=== PATIENT | male | born 1955 | race Caucasian/White ===

== ENCOUNTER 2024-10-23 07:59 | Inpatient (IN) ==
--- NOTE | 2024-10-03 09:18 | PAT Medication Instructions ---
Medication Instructions Date of Service October 03, 2024 Home Medications aspirin 81 mg capsule 81 mg PO QAM atorvastatin 80 mg tablet 80 mg PO HS carvedilol 3.125 mg tablet 3.125 mg PO BID celecoxib 100 mg capsule (Celebrex) 100 mg PO HS multivitamin 1 tab PO QAM omeprazole 20 mg capsule,delayed release 20 mg PO QAM tamsulosin 0.4 mg capsule 0.4 mg PO HS valacyclovir 500 mg tablet (Valtrex) 500 mg PO QAM diclofenac epolamine 1.3 % transdermal 24 hour patch 1 patch transdermal DAILY fluticasone propionate 50 mcg/actuation nasal spray,suspension 1 spray intranasal HS ASK your surgeon for instructions celecoxib 100 mg capsule (Celebrex) 100 mg PO HS ASK your prescriber and surgeon aspirin 81 mg capsule 81 mg PO QAM diclofenac epolamine 1.3 % transdermal 24 hour patch 1 patch transdermal DAILY DO NOT take the morning of surgery multivitamin 1 tab PO QAM Take morning of surgery With a small sip of water, OTHERWISE NOTHING TO EAT OR DRINK AFTER MIDNIGHT: carvedilol 3.125 mg tablet 3.125 mg PO BID omeprazole 20 mg capsule,delayed release 20 mg PO QAM valacyclovir 500 mg tablet (Valtrex) 500 mg PO QAM Take evening before surgery atorvastatin 80 mg tablet 80 mg PO HS carvedilol 3.125 mg tablet 3.125 mg PO BID tamsulosin 0.4 mg capsule 0.4 mg PO HS fluticasone propionate 50 mcg/actuation nasal spray,suspension 1 spray intranasal HS Other Notes If you have any questions please call us at [phone] or [phone] or [phone] or [phone]
--- NOTE | 2024-10-08 11:25 | Anesthesiology Consultation ---
Date of Service October 08, 2024 Assessment & Plan (1) Encounter for pre-operative examination: - Infectious disease screening: Per assessment on 10/08/24- No known recent infectious disease contacts or current infectious disease symptoms. - Cardiology visit (07/26/24): "He is scheduled to see orthopedic surgery for his severe back pain.. No symptoms of angina or heart failure.. Continue aggressive risk factor modification.. Hypertension.. Well-controlled on carvedilol which has been well-tolerated we will continue the same.. We will update echocardiogram for mitral regurgitant murmur and compare to 2022 [Echo updated 08/07/24].." - [facility] note (10/04/24): "Low risk" - Possible difficult intubation: Significantly decreased cervical extension - Patient acceptable risk for surgery pending surgeon-ordered PCP preop evaluation ([facility], appt 10/12). Chart Review Chart Review: Patient seen in Pre Admission Testing Teaching & Discussion Pre-Anesthesia Teaching/Discussion Notes: Instructed NPO after midnight before surgery,except medications with 15 cc of water. Medication instructions provided according to the PAT guidelines. History Surgery Operation Date: 10/23/24 09:35 Proposed Procedures p L4-S1 Decompression and Fusion - Abel Hunt DO Height/Weight Height: 6 ft Weight: 83.2 kg Allergies Allergy/AdvReac Type Severity Reaction Status Date / Time No Known Allergies Allergy Verified 10/01/24 09:48 Medications Home Medications Medication Instructions Recorded Confirmed Last Taken aspirin 81 mg capsule 81 mg PO QAM 09/03/22 10/01/24 Unknown atorvastatin 80 mg tablet 80 mg PO HS 09/03/22 10/01/24 Unknown carvedilol 3.125 mg tablet 3.125 mg PO BID 09/03/22 10/01/24 09/28/22 08:00 celecoxib 100 mg capsule (Celebrex) 100 mg PO HS 09/03/22 10/01/24 Unknown multivitamin 1 tab PO QAM 09/03/22 10/01/24 Unknown omeprazole 20 mg capsule,delayed 20 mg PO QAM 09/03/22 10/01/24 09/09/22 07:30 release tamsulosin 0.4 mg capsule 0.4 mg PO HS 09/03/22 10/01/24 Unknown valacyclovir 500 mg tablet 500 mg PO QAM 09/03/22 10/01/24 Unknown (Valtrex) diclofenac epolamine 1.3 % 1 patch transdermal DAILY 10/01/24 10/01/24 Unknown transdermal 24 hour patch fluticasone propionate 50 1 spray intranasal HS 10/01/24 10/01/24 Unknown mcg/actuation nasal spray,suspension Past Medical History Medical History (Updated 10/08/24 @ 11:28 by Norma Toro) BPH (benign prostatic hyperplasia) CAD (coronary artery disease) 2017- stent x1 Follows with [facility] Chronic back pain Follows with [facility] Chronic neck pain Follows with [facility] Degenerative disc disease GERD (gastroesophageal reflux disease) History of COVID-2020- mild flu-like symptoms, resolved Hx of colonic polyps Hyperlipidemia Hypertension Per records, patient denies Myocardial Infarction 2017 Follows with [facility] Osteoarthritis Sleep apnea "Mild" Unable to use CPAP Spinal stenosis Past Family History Family History Other No family history of adverse response to anesthesia Past Surgical History Surgical History (Updated 10/08/24 @ 10:31 by Norma Toro) H/O wisdom tooth extraction History of cardiac cath 2017- stent x1 ([facility]/[place]) History of colonoscopy History of heart artery stent x1 stent in 2017 at [facility] in [place] History of left cataract extraction Hx of arthroscopy of shoulder Left w/RCR and biceps tendon repair Hx of esophagogastroduodenoscopy Hx of right cataract extraction S/P epidural steroid injection Social History Smoking Status: Former smoker tobacco type: cigarettes Do You Dip or Chew Tobacco: No (quit early 20's) Smoking End Date: 2016 Hx Alcohol Use: Yes Alcohol type: beer alcohol intake frequency: holidays/special occasions only Hx Substance Use: No substance use type: does not use Review of Systems Patient denies chest pain, shortness of breath, dyspnea on exertion, fever, chills, cough, wheezing, palpitations. Physical Exam Vital Signs BP 127/80 P 66 TEMP 98.3 SP02 95%RA RESP 16 Physical Significantly decreased cervical extension range of motion. Full TMJ range of motion. TMD 3 finger breaths Mallampati Score III Dentition: intact, + caps Lungs: clear throughout to auscultation Cardiac: regular rate and rhythm, no murmurs noted Spine: normal Carotid arteries: negative bruit Extremities: no LE edema Lab Results Anesthesia Preop Results Results Anesthesia Widget: WBC 6.59 K/ul (4.8-10.8) 10/08/24 Hgb 16.6 g/dl (14.0-18.0) 10/08/24 Hct 48.1 % (42.0-52.0) 10/08/24 Plt 376 K/uL (130-400) 10/08/24 Na 139 mmol/L (136-145) 10/08/24 K 4.3 mmol/L (3.5-5.1) 10/08/24 Cl 105 mmol/L (98-107) 10/08/24 CO2 29 mmol/L (21-32) 10/08/24 BUN 16 mg/dl (6-23) 10/08/24 Creat 0.65 mg/dl (0.6-1.4) 10/08/24 Glucose Level 92 mg/dl (70-99(Fasting)) 10/08/24 PT 11.1 Seconds (9.0-12.0) 10/08/24 PTT 30 Seconds (21-31) 10/08/24 INR 1.0 (0.9-1.1) 10/08/24 Urine Color Yellow 10/08/24 Urine Appearance Clear (Clear) 10/08/24 Urine pH 7.0 (4.5-7.5) 10/08/24 Urine Specific [place] 1.006 (1.000-1.030) 10/08/24 Urine Protein Negative (Negative) 10/08/24 Urine Glucose (UA) Negative (Negative) 10/08/24 Urine Ketones Negative (Negative) 10/08/24 Urine Blood Negative (Negative) 10/08/24 Urine Nitrite Negative (Negative) 10/08/24 Urine Bilirubin Negative (Negative) 10/08/24 Urine Urobilinogen Negative (Negative) 10/08/24 Urine Leukocyte Esterase Negative (Negative) 10/08/24 Blood Type O Positive 10/08/24 Antibody Screen NEGATIVE 10/08/24 Testing Electrocardiogram Date: 07/26/24 Normal sinus rhythm at 74 bpm. Septal infarct (cited on or before 07/28/2023). Echo performed 08/07/2024. Chest X-Ray Date: 10/08/24 FINDINGS: Heart size and pulmonary vasculature are normal. No consolidation or pleural effusion. IMPRESSION: No acute findings. Echocardiogram Date: 08/07/24 LVEF 50-55%. Wall motion: All segments contract normally. Trace to Mild MR. Stress Test Date: 10/21/21 Type: exercise Negative for ischemia by EKG criteria. 12.0 METS. 90% MPHR.
[~2024-10-23 07:59] MED LIST: DexMEDEtomidine HCL IV 100 MCG/ML VIAL IV ONE; LIDOCAINE 2% 2 ML VIAL/AMP(20MG/ML) INFIL ONE; PROPOFOL IV EMULSION 10 MG/ML 20 ML VIAL IV ONE; ROCURONIUM BROMIDE 10 MG/ML 5 ML VIAL IV ONE
[2024-10-23] MEDS: GABAPENTIN 300 MG CAP PO SCH (08:08)
[2024-10-23] MEDS: CeleBREX 200 MG CAP PO SCH (08:08)
[2024-10-23] MEDS: LR 60ML/HR IV SCH (08:32)
[2024-10-23] MEDS: LR 15ML/HR IV SCH (08:32)
[2024-10-23] MEDS ORDERED: MIDAZOLAM HCL 1 MG/ML 2ML VIAL ONE (08:48)
[2024-10-23] MEDS ORDERED: KETAMINE HCL 10MG/ML SYR ONE (08:49)
--- NOTE | 2024-10-23 09:18 | History & Physical Bridge Note ---
Date of Service October 23, 2024 History & Physical Bridge Note I have examined the patient, reviewed the History & Physical and in the interval since the performance of the History & Physical I have noted the following changes of clinical significance: no changes noted
[2024-10-23] MEDS ORDERED: ONDANSETRON INJ 2 MG/ML 2 ML VIAL IV PRN ×2 (09:19→16:17)
[2024-10-23] MEDS ORDERED: ATROPINE SULFATE 0.1 MG/ML 10ML SYR IV PRN (09:19)
--- NOTE | 2024-10-23 09:19 | History & Physical Report ---
Date of Service October 23, 2024 Assessment & Plan (1) Multilevel lumbosacral spondylosis with radiculopathy: Plan: Decompression and fusion L4-S1 History of Present Illness Chief Complaint: Back and leg pain Primary Care Provider: Mckinley Cordero MD This is a 69-year-old male who presents with chronic persistent back and leg pain after failed course of nonoperative care is here for surgical invention. Allergies Allergy/AdvReac Type Severity Reaction Status Date / Time No Known Allergies Allergy Verified 10/23/24 08:02 Home Medications Medication Instructions Recorded Confirmed Type aspirin 81 mg capsule 81 mg PO QAM 09/03/22 10/23/24 History atorvastatin 80 mg tablet 80 mg PO HS 09/03/22 10/23/24 History carvedilol 3.125 mg tablet 3.125 mg PO BID 09/03/22 10/23/24 History celecoxib 100 mg capsule (Celebrex) 100 mg PO HS 09/03/22 10/23/24 History multivitamin 1 tab PO QAM 09/03/22 10/23/24 History omeprazole 20 mg capsule,delayed 20 mg PO QAM 09/03/22 10/23/24 History release tamsulosin 0.4 mg capsule 0.4 mg PO HS 09/03/22 10/23/24 History valacyclovir 500 mg tablet 500 mg PO QAM 09/03/22 10/23/24 History (Valtrex) diclofenac epolamine 1.3 % 1 patch transdermal DAILY 10/01/24 10/23/24 History transdermal 24 hour patch fluticasone propionate 50 1 spray intranasal HS 10/01/24 10/23/24 History mcg/actuation nasal spray,suspension Past Med/Surg History Problem List (Updated 10/23/24 @ 09:19 by Abel Hunt DO) Multilevel lumbosacral spondylosis with radiculopathy Encounter for pre-operative examination Medical History (Updated 10/23/24 @ 09:19 by Abel Hunt DO) CAD (coronary artery disease) 2017- stent x1 Follows with [facility] Sleep apnea "Mild" Unable to use CPAP Hx of colonic polyps Spinal stenosis Chronic neck pain Follows with [facility] Degenerative disc disease Chronic back pain Follows with [facility] Osteoarthritis BPH (benign prostatic hyperplasia) GERD (gastroesophageal reflux disease) Myocardial Infarction 2017 Follows with [facility] Hypertension Per records, patient denies Hyperlipidemia History of COVID-19 2020- mild flu-like symptoms, resolved Surgical History Hx of arthroscopy of shoulder Left w/RCR and biceps tendon repair Hx of esophagogastroduodenoscopy H/O wisdom tooth extraction Hx of right cataract extraction History of left cataract extraction History of colonoscopy S/P epidural steroid injection History of heart artery stent x1 stent in 2017 at [facility] in [place] History of cardiac cath 2017- stent x1 ([facility]/[place]) Family History Other No family history of adverse response to anesthesia Social History Smoking Status: Former smoker Smoking End Date: 2016; Second Hand Exposure: No; Do You Dip or Chew Tobacco: No (quit early 20's); Tobacco Cessation Education Requested by Patient: No Hx Alcohol Use: Yes Alcohol type: beer Hx Substance Use: No Preferred Language: Citizen Of [place] Communication Ability: Effective Dev Manager Required: No Beliefs That Will Affect Care: None Current Living Situation: Spouse Other Information That Helps Us Care for You: No Feels Safe at Home: Yes Safety Concerns: Feels Safe At This Time Assistive Devices: None and Glasses Physical Exam Physical Exam: Patient is alert and oriented Heart regular rhythm Lungs clear Results & Data Results & Data Vital Signs (Past 12 Hours) Vital Signs Temp Pulse Resp BP Pulse Ox O2 Del Method 10/23/24 08:18 36.5 C 74 18 136/86 99 Room Air
[2024-10-23] MEDS ORDERED: ROCURONIUM BROMIDE 10 MG/ML 5 ML VIAL IV ONE (10:08)
[2024-10-23] MEDS ORDERED: DEXAMETHASONE SOD INJ 4 MG/ML VIAL ONE (10:15)
[2024-10-23] MEDS ORDERED: PHENYLEPHRINE 100MCG/ML 5ML SYR ONE (10:21)
[2024-10-23] MEDS ORDERED: HYDROmorphone INJ 2 MG/ML SYR/VIAL ONE (11:02)
[2024-10-23] MEDS ORDERED: ONDANSETRON INJ 2 MG/ML 2 ML VIAL ONE (11:05)
[2024-10-23] MEDS: BUPIVACAINE/EPINEPHRINE 0.25% 1:200,000 30 ML VIAL ONE (11:39)
[2024-10-23] MEDS ORDERED: SUGAMMADEX SODIUM 200 MG/2 ML VIAL IV ONE (11:41)
[2024-10-23] MEDS: FLOSEAL HEMOSTATIC MATRIX 10ML TOP ONE (11:58)
[2024-10-23] MEDS: ceFAZolin 330 MG/ML 1 GM VIAL ONE ×2 (11:58→11:59)
--- NOTE | 2024-10-23 12:11 | Operative Report ---
Post Operative Report Pre & Post Diagnosis Operation Date: 10/23/24 09:35 Pre-Op Diagnosis: #1 multilevel lumbosacral spondylosis with radiculopathy #2 lumbar spondylolisthesis #3 lumbar spinal stenosis Post-Op Diagnosis: Same I identified the patient and participated in the time-out.: Yes Procedure Operation Date: 10/23/24 09:35 Actual Procedures #1 lumbar decompression with bilateral medial facetectomies and foraminotomies L3-L4, L4-L5 and L5-S1. #2 posterior spinal fusion L4-S1. #3 placed posterior instrumentation L4-S1 using Guidry. #4 interbody fusion L4-L5 L5-S1. #5 posterior Spira 12 x 26 mm x 2 at L4-L5 and 11 x 26 mm x 2 at L5-S1. #6 placement locally harvested morselized autograft in the posterior gutters. #7 placement of Proteus combined with Koros in the posterior lateral gutters and os design in the interbody spaces. #8 application of versa wrap of the exposed dura. Surgeon Abel Hunt, DO Custom Bookbinder Jessika Car Estimated Blood Loss 400 Findings Consistent with Post-Op Diagnosis Specimens None Indications This is a 69-year-old male presents from his diagnosis of failed course of nonoperative care is here for surgical invention. Description of Procedure Patient was met with identified informed consent obtained. Patient was then taken to the operative suite underwent patient placed in prone position on the Felipe table atop the Aron frame. All bony prominences well-padded eyes inspected to ensure no external pressure placed upon them. This point lumbar spine was prepped and draped in the normal sterile fashion. Sharp dissection with the assistance of Bovie cautery from down to and exposing the lamina and transverse processes of L4-L5 and the sacral ala bilaterally. From a [place] fashion complete laminectomy of L5 L4 and partial laminectomy of L3 was performed this included bilateral medial facetectomies and foraminotomies to address all subarticular stenosis and neural compression. Pedicle screws were then placed in L for L5 and S1 levels bilaterally with assistance of fluoroscopy and the purposes florencia placed. By way of transfer and approach on the right a discectomy of L5-S1 was performed endplates created to subcortically bone and 11 x 26 mm Spira cage tapped into position. Then proceeded to the left aceves sforaminal region at L5-S1. Discectomy again performed. Endplate grade 2 subcortical bleeding bone and a second 11 x 26 mm spiral cage tapped in position. Number seated L4-L5 by way of transforaminal approach on the left discectomy was performed. Endplates coated to subcortical bleeding bone and a 12 x 26 mm spiral cage tapped into position. Then proceeded to the right transforaminal region at L for L5. Again discectomy performed. Endplates produced a cortical bleeding bone and a second 12 x 26 mm spiral cage tapped into position. Please note all cages were packed with os design bone graft. The rods were then compressed and locked in a final position bilaterally. The transverse processes of L4-L5 and sacral ala burred to subcortical bleeding bone. Proteus combined with Koros and local autograft placed in posterior gutters. Versa wrap placed of exposed dura. 15 round GRAEME drain inserted. The incision was then closed with 1 Vicryl fascia 2-0 Vicryl subcutaneously and 4-0 Monocryl for final skin closure. Steri-Strips sterile dressing placed. Patient waken taken to PACU stable condition. Please note Jessika Car was present of the entire surgery and while the patient positioning complex portion of the surgery and final skin closure. Im ordering 10 grams of Collagen Powder (HCPCS A6010 Primary Dressing) and 10 bordered super absorbent (HCPCS A6196 Secondary Dressing) to treat an incision wound that was caused by a spine procedure. The incision is approximately 2 cm(W) x 2 cm(L) down to the spinal column and epidural space 2 cm (D) in size and is a full thickness wound showing no signs of infection. Collagen comes in 1 gram packets so 10 packets were ordered. Given the size of the wound, with moderate exudate I chose to order a 10 day supply. The patient will be provided instructions for proper application of the collagen wound kit. The patient will be asked to apply the collagen powder daily and then cover it with sterile dressings dispensed. Collagen was selected as I expect the collagen to attract monocytes and fibroblasts, act as a sacrificial substrate for MMPs, and ultimately proved a matrix for tissue and vessel growth. The collagen will act as a primary dressing in this scenario. It is medically necessary for proper healing of these wounds to improve bioavailability and contact with each wound surface, this is also to help prevent infection of wounds and promote healing ultimately leading to a better healing outcome and limit the risk of infection. I attest to the content of the Intraoperative Record and any orders documented therein. Any exceptions are noted below.
--- NOTE | 2024-10-23 12:39 | Anesthesiology Progress Note ---
Date of Service October 23, 2024 Anesthesia Post Procedure Vital Signs Vital Signs: Temp Pulse Resp BP Pulse Ox O2 Del Method O2 Flow Rate 10/23/24 12:30 82 12 127/73 100 Oxymask 8 10/23/24 12:22 36.0 C L 73 17 125/80 100 Oxymask 8 10/23/24 08:18 36.5 C 74 18 136/86 99 Room Air Transfer of Care Handoff Completed per policy Notes Mental Status: alert / awake / arousable Patient Amnestic to Procedure: Yes Nausea / Vomiting: adequately controlled Pain: adequately controlled Airway Patency, RR, SpO2: stable & adequate BP & HR: stable & adequate Hydration State: stable & adequate Anesthetic Complications: no major complications apparent and Pt Satisfied with anesthetic care
[2024-10-23] MEDS: HYDROmorphone INJ 1 MG/ML SYRINGE IV PRN (12:57)
[2024-10-23] MEDS ORDERED: ePHEDrine sulfate 50 MG/5 ML SYR ONE (13:01)
--- NOTE | 2024-10-23 14:09 | Fluoroscopy Report ---
INTRAOPERATIVE RADIOGRAPHS CLINICAL HISTORY: L4-S1 spinal fusion. Fluoro time: 25 seconds Ka,r: 15.31 mGy FINDINGS: 2 spot fluoroscopic views of the lumbar spine are presented. There has been discectomy at L 4-L5 and L5-S1 with laminectomy and posterior fusion at L4-S1. Interpedicular screws are present at a ll levels. The orthopedic hardware appears intact. There is minimal anterolisthesis at L4-L5. IMPRESSION: Intraoperative images from lumbar spinal fusion surgery as above. Electronically signed by: Hollis Harrison M.D. 10/23/2024 2:08 PM
[2024-10-23] MEDS: HYDROmorphone INJ 2 MG/ML SYR/VIAL IV PRN (14:29)
--- NOTE | 2024-10-23 15:14 | Communication Note ---
Date of Service: October 23, 2024 increasing irritation and foreign body sensation in R eye. Vision unaffected. mild conjunctival injection without any obvious injury or abrasion. suspect a mild corneal abrasion, will treat with emycin ointment for prophylaxis of infection and ketorolac eye drops for discomfort. recommend ophtho consult if vision becomes impaired.
[2024-10-23] MEDS: KETOROLAC 0.5% OP SOLN 5 ML BTL OPR SCH (15:49)
[2024-10-23] MEDS: ERYTHROMYCIN OP OINT 5 MG/GM 3.5 GM TUBE OPR SCH (15:49)
[2024-10-23] MEDS ORDERED: diphenhydrAMINE Capsule 25 MG CAP PO PRN (16:17)
[2024-10-23] MEDS ORDERED: MAGNESIUM HYDROXIDE SUSP 30 ML UDC PO PRN (16:17)
[2024-10-23] MEDS ORDERED: LORazepam 0.5 MG TAB PO PRN (16:17)
[2024-10-23] MEDS ORDERED: ACETAMINOPHEN 500 MG TAB PO PRN (16:17)
[2024-10-23] MEDS ORDERED: NALOXONE HCL 0.4 MG/1 ML VIAL/CARP IV PRN (16:17)
[2024-10-23] MEDS ORDERED: PROMETHAZINE 12.5 MG/50.5 ML BAG IV PRN (16:17)
[2024-10-23] MEDS ORDERED: HYDROmorphone INJ 1 MG/ML SYRINGE IV PRN (16:17)
[2024-10-23] MEDS ORDERED: ONDANSETRON 4 MG OD TAB PO PRN (16:17)
[2024-10-23] MEDS ORDERED: SOD PHOSPHATE/SOD BIPHOSPHATE ENEMA 132 ML BTL PR PRN (16:17)
[2024-10-23] MEDS ORDERED: METOCLOPRAMIDE HCL INJ 5 MG/ML 2 ML VIAL IV PRN (16:17)
[2024-10-23] MEDS ORDERED: HYDROmorphone INJ 0.5 MG/0.5 ML SYR IV PRN (16:17)
[2024-10-23] MEDS ORDERED: DO NOT ADMINISTER PNEUMOCOCCAL VACCINE PRN (16:17)
[2024-10-23] MEDS ORDERED: DO NOT ADMINISTER FLU VACCINE PRN (16:17)
[2024-10-23] MEDS ORDERED: ACETAMINOPHEN 1,000 MG/100 ML VIAL IV PRN (16:17)
[2024-10-23] MEDS ORDERED: FAMOTIDINE 20 MG TAB PO PRN (16:17)
[2024-10-23] MEDS ORDERED: ALUMINUM/MAGNESIUM SUSP 30 ML UDC PO PRN (16:17)
[2024-10-23] MEDS: LACTATED RINGER'S 1,000 ML IV SCH (16:31)
--- NOTE | 2024-10-23 16:38 | Hospitalist Consultation ---
<Statement entered by Ellis Lopez DO - 10/23/24 18:46> patient seen and examined Encouraged IS use Rest as below Date of Consultation October 23, 2024 Assessment & Plan (1) Multilevel lumbosacral spondylosis with radiculopathy: (2) CAD (coronary artery disease): (3) GERD (gastroesophageal reflux disease): (4) Hyperlipidemia: (5) BPH (benign prostatic hyperplasia): Plan This is a 69 y/o male with CAD, hx TX, s/p LAD stent, GERD, BPH, proximal AAA, and other history as outlined below who underwent L4-S1 decompression fusion today and for whom we have been consulted to assist with post-operative medical management. Currently pt is feeling well. He was having right eye pain and irritation initially post-op but was evaluated by anesthesia, diagnosed with a corneal abrasion, and put on treatment with erythromycin/ketorolac. #Multilevel lumbosacral spondylosis with radiculopathy - s/p L4-S1 decompression fusion today. - Pain control, activity, and DVT prophylaxis per the primary team - EBL 400 ml - will repeat H&H in the AM to monitor for post-op blood loss anemia #Right corneal abrasion - Continue erythromycin and ketorolac as ordered by anesthesia #CAD, prior TX, s/p LAD stent - Asymptomatic at present, no issues with activity prior to surgery - Continue aspirin, statin, beta-arden #GERD - Chronic, stable - continue PPI #BPH - Chronic, stable - continue tamsulosin Thank you for this consultation. We will continue to follow the patient with you. A member of the [facility] team is available 20/09 via mBl[employer]. Please don't hesitate to reach out with questions. Pt seen and reviewed with collaborating physician, Dr. Lopez. Plan of care discussed and as outlined above. I spent a total of 62 minutes coordinating, documenting, and providing care for this patient excluding time spent in the performance of separately billed services or time spent by another provider/QHP. Mary Aldrich PA-C History of Present Illness Reason for Consultation: Post-operative medical management Requesting Physician: Dr. Abel Hunt Attending Physician: Abel Hunt DO History of Present Illness This is a 69 y/o male with CAD, hx TX, s/p LAD stent, GERD, BPH, proximal AAA, and other history as outlined below who underwent L4-S1 decompression fusion today and for whom we have been consulted to assist with post-operative medical management. Pt reports CAD is stable - denies exertional chest pain or dyspnea. Follows with cardiology regularly. His pain is currently well-controlled, mostly in the lumbar area with minimal radiation. He has some residual numbness in his feet, but this is improving. Post-operatively he had significant pain in his right eye with associated watering of the eye. Seen by anesthesia and diagnosed with a corneal abrasion, started on erythromycin and ketorolac ophthalmic. Already notes improvement in the discomfort. At present, he denies chest pain, palpitations, shortness of breath, N/V, REEVES, dizziness. He notes mild throat irritation. Allergies Allergy/AdvReac Type Severity Reaction Status Date / Time No Known Allergies Allergy Verified 10/23/24 08:02 Home Medications Medication Instructions Recorded Confirmed Type aspirin 81 mg capsule 81 mg PO QAM 09/03/22 10/23/24 History atorvastatin 80 mg tablet 80 mg PO HS 09/03/22 10/23/24 History carvedilol 3.125 mg tablet 3.125 mg PO BID 09/03/22 10/23/24 History celecoxib 100 mg capsule (Celebrex) 100 mg PO HS 09/03/22 10/23/24 History multivitamin 1 tab PO QAM 09/03/22 10/23/24 History omeprazole 20 mg capsule,delayed 20 mg PO QAM 09/03/22 10/23/24 History release tamsulosin 0.4 mg capsule 0.4 mg PO HS 09/03/22 10/23/24 History valacyclovir 500 mg tablet 500 mg PO QAM 09/03/22 10/23/24 History (Valtrex) diclofenac epolamine 1.3 % 1 patch transdermal DAILY 10/01/24 10/23/24 History transdermal 24 hour patch fluticasone propionate 50 1 spray intranasal HS 10/01/24 10/23/24 History mcg/actuation nasal spray,suspension Patient History Medical History (Updated 10/23/24 @ 17:14 by Jolly Aldrich PA-C) CAD (coronary artery disease) 2017- stent x1 Follows with [facility] Sleep apnea "Mild" Unable to use CPAP Hx of colonic polyps Spinal stenosis Chronic neck pain Follows with [facility] Pain Management Degenerative disc disease Chronic back pain Follows with [facility] Osteoarthritis BPH (benign prostatic hyperplasia) GERD (gastroesophageal reflux disease) Myocardial Infarction 2017 Follows with [facility] Cardiology Hypertension Per records, patient denies Hyperlipidemia History of COVID-19 2020- mild flu-like symptoms, resolved Surgical History Hx of arthroscopy of shoulder Left w/RCR and biceps tendon repair Hx of esophagogastroduodenoscopy H/O wisdom tooth extraction Hx of right cataract extraction History of left cataract extraction History of colonoscopy S/P epidural steroid injection History of heart artery stent x1 stent in 2017 at [facility] History of cardiac cath 2017- stent x1 ([facility]/[place]) Family History Other No family history of adverse response to anesthesia Social History Smoking Status: Former smoker Smoking End Date: 2016; Second Hand Exposure: No; Do You Dip or Chew Tobacco: No (quit early 20's); Tobacco Cessation Education Requested by Patient: No Hx Alcohol Use: Yes Alcohol type: beer Hx Substance Use: No Preferred Language: Vietnamese Communication Ability: Effective Guest Service Manager Required: No Beliefs That Will Affect Care: None Current Living Situation: Spouse Other Information That Helps Us Care for You: No Feels Safe at Home: Yes Safety Concerns: Feels Safe At This Time Assistive Devices: None and Glasses Review of Systems Review of Systems: All systems reviewed & are unremarkable except as noted in Subjective Physical Exam Physical Exam: General: awake, alert, NAD HEENT: right eye with mild conjunctival injection and watery drainage Neck: supple, trachea midline Heart: RRR Lungs: CTA bilaterally Abdomen: soft, NT, +BS Extremities: no pedal edema, distal pulses intact and equal Skin: warm, dry, no jaundice or rashes GRAEME drain in place, moving all extremities Results & Data Results & Data Vital Signs (Past 12 Hours) Vital Signs Temp Pulse Pulse Resp BP Pulse Ox O2 Del Method 10/23/24 16:10 37.2 C 83 17 116/75 97 Room Air 10/23/24 15:54 99 H 21 130/95 100 Room Air 10/23/24 15:20 86 14 126/76 100 Nasal Cannula 10/23/24 14:50 86 13 127/81 100 Nasal Cannula 10/23/24 14:20 86 12 128/78 100 Nasal Cannula 10/23/24 14:05 83 13 113/75 100 Nasal Cannula 10/23/24 13:50 73 12 121/79 100 Nasal Cannula 10/23/24 13:35 73 17 114/74 97 Room Air 10/23/24 13:20 36.6 C 68 14 123/81 100 Room Air 10/23/24 13:10 72 14 131/79 100 Room Air 10/23/24 13:00 72 12 136/79 100 Room Air 10/23/24 12:50 75 16 129/83 100 Room Air 10/23/24 12:40 80 15 135/82 100 Oxymask 10/23/24 12:30 82 12 127/73 100 Oxymask 10/23/24 12:22 36.0 C L 73 17 125/80 100 Oxymask 10/23/24 08:18 36.5 C 74 18 136/86 99 Room Air O2 Flow Rate 10/23/24 16:10 10/23/24 15:54 0 10/23/24 15:20 2 10/23/24 14:50 2 10/23/24 14:20 2 10/23/24 14:05 2 10/23/24 13:50 2 10/23/24 13:35 10/23/24 13:20 10/23/24 13:10 10/23/24 13:00 10/23/24 12:50 10/23/24 12:40 4 10/23/24 12:30 8 10/23/24 12:22 8 10/23/24 08:18 Laboratory Results 10/23/24 08:06 Blood Type O Positive Antibody Screen NEGATIVE Crossmatch See Detail Medications Administered Celecoxib (Celebrex 200 Mg Cap) 200 mg PO PREOP GEOFF Stop: 10/23/24 18:00 Last Admin: 10/23/24 08:08 Dose: 200 mg Documented By: NICK Erythromycin (Erythromycin Op Oint 5 Mg/Gm 3.5 Gm Tube) 1 appln OPR BID GEOFF Stop: 11/02/24 15:44 Last Admin: 10/23/24 15:49 Dose: 1 appln Documented By: DANI Gabapentin (Gabapentin 300 Mg Cap) 300 mg PO PREOP GEOFF Stop: 10/23/24 18:00 Last Admin: 10/23/24 08:08 Dose: 300 mg Documented By: NCIK Hydromorphone HCl (Hydromorphone Inj 2 Mg/Ml Syr/Vial) 0.5 mg IV Q5M PRN PRN Reason: PACU Use Only-Pain Stop: 10/23/24 17:20 Last Admin: 10/23/24 14:39 Dose: 0.5 mg Documented By: Admin: 10/23/24 14:34 Dose: 0.5 mg Documented By: Admin: 10/23/24 14:29 Dose: 0.5 mg Documented By: DANI Lactated Ringer's (Lr) 1,000 mls @ 60 mls/hr IV .[id number] GEOFF Stop: 10/23/24 22:39 Last Infusion: 10/23/24 09:51 Dose: Infused [place] [facility] [place] 10/23/24 08:32 Dose: 60 mls/hr [place]ed [place] [facility] [place] Cefazolin Sodium (Ancef 2000mg) 2,000 mg in 15 mls @ 3.75 mls/min IV PREOP GEOFF; Protocol Stop: 10/23/24 18:00 Last Admin: 10/23/24 09:55 Dose: 3.75 mls/min Documented By: [id number] Lactated Ringer's (Lr) 1,000 mls @ 15 mls/hr IV .[id number] GEOFF Stop: 10/24/24 05:59 Last Admin: 10/23/24 08:32 Dose: Not Given [place]ed By[place] [facility] [place] Lactated Ringer's (Lr) 1,000 mls @ 75 mls/hr IV .[id number] GEOFF Stop: 10/24/24 08:00 Last Admin: 10/23/24 16:31 Dose: 75 mls/hr Documented By: MAURICIO Ketorolac Tromethamine (Ketorolac 0.5% Op Soln 5 Ml Btl) 1 drops OPR QID GEOFF Stop: 11/22/24 15:59 Last Admin: 10/23/24 15:49 Dose: 1 drops Documented By: DANI Discontinued Medications Bupivacaine HCl/Epinephrine Bitart (Bupivacaine/Epinephrine 0.25% 1:200,000 30 Ml Vial) Confirm Administered Dose 30 ml .ROUTE .STK-MED ONE Stop: 10/23/24 09:47 Last Admin: 10/23/24 11:39 Dose: 20 ml Documented By: ANA Cefazolin Sodium (Cefazolin 330 Mg/Ml 1 Gm Vial) Confirm Administered Dose 990 mg .ROUTE .STK-MED ONE Stop: 10/23/24 09:47 Last Admin: 10/23/24 11:58 Dose: 1,000 mg Documented By: GMB Cefazolin Sodium (Cefazolin 330 Mg/Ml 1 Gm Vial) Confirm Administered Dose 1,980 mg .ROUTE .STK-MED ONE Stop: 10/23/24 10:12 Last Admin: 10/23/24 11:59 Dose: 2,000 mg Documented By: ANA Fentanyl Citrate (Fentanyl Citrate Pf 100 Mcg/2 Ml Vial) 25 mcg IV Q5M PRN PRN Reason: PACU Use Only-Pain Stop: 10/23/24 17:20 Last Admin: 10/23/24 12:55 Dose: 25 mcg Documented By: Admin: 10/23/24 12:50 Dose: 25 mcg Documented By: Admin: 10/23/24 12:45 Dose: 25 mcg Documented By: Admin: 10/23/24 12:40 Dose: 25 mcg Documented By: DANI Hydromorphone HCl (Hydromorphone Inj 1 Mg/Ml Syringe) 0.25 mg IV Q5M PRN PRN Reason: PACU Use Only-Pain Stop: 10/23/24 17:20 Last Admin: 10/23/24 13:12 Dose: 0.25 mg Documented By: Admin: 10/23/24 13:07 Dose: 0.25 mg Documented By: Admin: 10/23/24 13:02 Dose: 0.25 mg Documented By: Admin: 10/23/24 12:57 Dose: 0.25 mg Documented By: JESSE Miscellaneous ( Floseal Hemostatic Matrix 10ml) 20 ml TOP ONCE ONE Stop: 10/23/24 11:41 Last Admin: 10/23/24 11:58 Dose: 19 ml Documented By: ANA (2) CAD (coronary artery disease) Associated angina: without angina Coronary Disease-Associated Artery/Lesion type: [place] artery [place] vs. transplanted heart: [place] heart Qualified Code(s): I25.10 - Atherosclerotic heart disease of [place] coronary artery without angina pectoris (3) GERD (gastroesophageal reflux disease) Esophagitis presence: without esophagitis Qualified Code(s): K21.9 - Gastro- esophageal reflux disease without esophagitis (4) Hyperlipidemia Hyperlipidemia type: unspecified Qualified Code(s): E78.5 - Hyperlipidemia, unspecified (5) BPH (benign prostatic hyperplasia) Lower urinary tract symptom presence: unspecified whether lower urinary tract symptoms present Qualified Code(s): N40.0 - Benign prostatic hyperplasia without lower urinary tract symptoms
[2024-10-23] MEDS: TAMSULOSIN HCL 0.4 MG CAP PO SCH (20:42)
[2024-10-23] MEDS: ATORVASTATIN 40 MG TAB PO SCH (20:42)
[2024-10-23] MEDS: DOCUSATE SODIUM/SENNA 50/8.6MG TAB PO SCH (20:43)
[2024-10-23] MEDS: FLUTICASONE PROPIONATE NA SPR 16 GM BTL SCH (20:43)
[2024-10-24] MEDS: POLYETHYLENE (MIRALAX) 17 GM PACK PO SCH (05:53)
[2024-10-24 07:47] LABS: Hematocrit (blood only) 42.4 % (42.0-52.0); Hemoglobin 14.4 g/dl (14.0-18.0); Immature Granulocytes # (auto) 0.17 K/uL (0.01-0.20); Immature Granulocytes % (auto) 1.3 %; Mean Corpuscular Hemoglobin 30.6 pg (25.0-34.0); Mean Corpuscular Volume 90.0 fL (80.0-100.0); Platelet Count 334 K/uL (130-400); RDW Standard Deviation 47.8 fL (36.4-46.3); Red Blood Count 4.71 M/uL (4.70-6.10); White Blood Count 12.77 K/ul (4.8-10.8)
[2024-10-24] MEDS: dexAMETHasone 6 MG in SYRINGE 0 ML IV SCH (08:02)
[2024-10-24] MEDS: MULTIVITAMIN TAB PO SCH (08:03)
[2024-10-24] MEDS: ASPIRIN 81 MG ECTAB PO SCH (08:03)
[2024-10-24 08:05] LABS: Anion Gap 6.0 (3-11); Blood Urea Nitrogen 10.0 mg/dl (6-23); Calcium 8.8 mg/dl (8.6-10.3); Carbon Dioxide 29.0 mmol/L (21-32); Chloride 103.0 mmol/L (98-107); Creatinine Clr Calc Pharmacy 109.3 ml/min; Glucose 122.0 mg/dl (70-99(Fasting)); Potassium 4.3 mmol/L (3.5-5.1); Sodium 138.0 mmol/L (136-145)
--- NOTE | 2024-10-24 10:58 | Orthopedic Progress Note ---
Date of Service October 24, 2024 Assessment & Plan (1) Multilevel lumbosacral spondylosis with radiculopathy: Plan: At this time we will continue physical therapy monitor his GRAEME output hopefully discharge home in the next few days. Admission and Anticipated Discharge Date Admission Date: October 23, 2024 Subjective Patient's back pain is controlled leg symptoms improved. He has been up and ambulating. Physical Exam Physical Exam: Patient is in the chair at the bedside. Discussed trying to test him. Is comfortable. Results & Data Vital Signs (Past 12 Hours) Vital Signs Temp Pulse Pulse Resp BP BP Pulse Ox 10/24/24 07:56 36.7 C 72 72 15 128/80 98 10/24/24 02:30 36.3 C L 79 16 110/69 95 O2 Del Method 10/24/24 07:56 Room Air 10/24/24 02:30 Room Air
[2024-10-24 12:45] VITALS: RESP 16
--- NOTE | 2024-10-24 15:38 | Hospitalist Progress Note ---
Date of Service October 24, 2024 Assessment & Plan (1) Multilevel lumbosacral spondylosis with radiculopathy: (2) CAD (coronary artery disease): (3) GERD (gastroesophageal reflux disease): (4) Hyperlipidemia: (5) BPH (benign prostatic hyperplasia): Plan This is a 69 y/o male with CAD, hx [place], s/p LAD stent, GERD, BPH, proximal AAA, and other history as outlined below who underwent L4-S1 decompression fusion today and for whom we have been consulted to assist with post-operative medical management. Currently pt is feeling well. He was having right eye pain and irritation initially post-op but was evaluated by anesthesia, diagnosed with a corneal abrasion, and put on treatment with erythromycin/ketorolac. #Multilevel lumbosacral spondylosis with radiculopathy - s/p L4-S1 decompression fusion today. - Pain control, activity, and DVT prophylaxis per the primary team - EBL 400 ml - will repeat H&H in the AM to monitor for post-op blood loss anemia Denies any significant pain following the procedure Has been moving around without much difficulties Remains medically stable with unremarkable labs #Right corneal abrasion - Continue erythromycin and ketorolac as ordered by anesthesia #CAD, prior [place], s/p LAD stent - Asymptomatic at present, no issues with activity prior to surgery - Continue aspirin, statin, beta-arden Does not have any respiratory and/or cardiac symptoms #GERD - Chronic, stable - continue PPI #BPH - Chronic, stable - continue tamsulosin DVT prophylaxis As per orthospine CODE STATUS Full Admission and Anticipated Discharge Date Admission Date: October 23, 2024 Subjective 10/24/2024 The patient was seen and examined in medical floor He is status post L4-S1 decompression and fusion Has had physical therapy today and denies any significant pain at rest Sitting on a chair without any acute distress Review of Systems Review of Systems: All systems reviewed and unremarkable except as noted below Physical Exam Physical Exam: Sitting on a chair without any acute distress Constitutional: well developed, well nourished, + ill appearing and average body habitus Eyes: PERRL, conjunctivae normal, anicteric sclerae ENMT: external ear and nose normal, oropharynx normal Neck: trachea midline, no thyromegaly Respiratory: no respiratory distress Auscultation: lungs clear to auscultation bilaterally Cardiovascular: Rate/Rhythm: regular rate and regular rhythm; not tachycardic Heart Sounds: normal S1 and normal S2; no murmur Extremities: no edema Gastrointestinal (Abdomen): Inspection/Auscultation: normal bowel sounds; abdomen not distended Percussion/Palpation: abdomen soft; abdomen nontender Musculoskeletal: No acute arthritis involving any of the joint Neurologic: normal touch/pain/proprioception and moves all extremities; no focal motor deficits Psychiatric: A+Ox3, euthymic affect Lymphatic: no cervical or axillary lymphadenopathy Results & Data Results & Data Vital Signs (Past 12 Hours) Vital Signs Temp Pulse Pulse Resp BP Pulse Ox O2 Del Method 10/24/24 14:36 36.6 C 75 16 121/76 96 Room Air 10/24/24 12:40 36.4 C L 71 71 16 121/77 96 Room Air 10/24/24 07:56 36.7 C 72 72 15 128/80 98 Room Air Laboratory Results Short CBC 10/24/24 Range/Units 07:08 WBC 12.77 H (4.8-10.8) K/ul Hgb 14.4 (14.0-18.0) g/dl Hct 42.4 (42.0-52.0) % Plt Count 334 (130-400) K/uL BMP 10/24/24 07:08 Sodium 138 Potassium 4.3 Chloride 103 Carbon Dioxide 29 BUN 10 Creatinine 0.69 Glucose 122 H Calcium 8.8 Medications Administered Current Inpatient Medications Acetaminophen (Acetaminophen 500 Mg Tab) 1,000 mg PO Q8H PRN PRN Reason: MILD Pain (1,2,3) & Pre PT Stop: 11/22/24 16:16 Al Hydrox/Mg Hydrox/Simethicone (Aluminum/Magnesium Susp 30 Ml Udc) 30 ml PO Q6H PRN PRN Reason: Dyspepsia Stop: 11/22/24 16:16 Aspirin (Aspirin 81 Mg Ectab) 81 mg PO QAM GEOFF Stop: 11/23/24 08:59 Last Admin: 10/24/24 08:03 Dose: 81 mg Atorvastatin Calcium (Atorvastatin 40 Mg Tab) 80 mg PO HS GEOFF Stop: 11/22/24 20:59 Last Admin: 10/23/24 20:42 Dose: 80 mg Bisacodyl (Bisacodyl 10 Mg Supp) 10 mg MI DAILY PRN PRN Reason: Constipation Stop: 11/22/24 16:16 Carvedilol (Carvedilol 3.125 Mg Tab) 3.125 mg PO BIDM [facility] Stop: 11/22/24 16:59 Last Admin: 10/24/24 08:02 Dose: 3.125 mg Diphenhydramine HCl (Diphenhydramine Capsule 25 Mg Cap) 25 mg PO Q6H PRN PRN Reason: Allergic Rhinitis/Insomnia Stop: 11/22/24 16:16 Erythromycin (Erythromycin Op Oint 5 Mg/Gm 3.5 Gm Tube) 1 appln OPR BID [facility] Stop: 11/02/24 15:44 Last Admin: 10/24/24 10:02 Dose: 1 appln Famotidine (Famotidine 20 Mg Tab) 20 mg PO Q12H PRN PRN Reason: Dyspepsia Stop: 11/22/24 16:16 Fluticasone Propionate (Fluticasone Propionate Na Spr 16 Gm Btl) 1 sprays NA HS [facility] Stop: 11/22/24 20:59 Last Admin: 10/23/24 20:43 Dose: 1 sprays Hydromorphone HCl (Hydromorphone Inj 0.5 Mg/0.5 Ml Syr) 0.5 mg IV Q3H PRN PRN Reason: MODERATE Pain(4,5,6)/Pre PT Stop: 11/06/24 16:16 Hydromorphone HCl (Hydromorphone Inj 1 Mg/Ml Syringe) 1 mg IV Q3H PRN PRN Reason: SEVERE Pain (7,8,9,10) Stop: 11/06/24 16:16 Hydroxyzine HCl (Hydroxyzine Hcl 25 Mg Tab) 25 mg PO Q8H PRN PRN Reason: Anxiety Stop: 11/22/24 16:16 Acetaminophen (Ofirmev) 1,000 mg in 100 mls @ 400 mls/hr IV Q8H PRN PRN Reason: MILD Pain (1,2,3) & Pre PT Stop: 10/24/24 16:18 Promethazine HCl (Phenergan) 12.5 mg in 50.5 mls @ 202 mls/hr IV Q6H PRN PRN Reason: Nausea And Vomiting Stop: 11/22/24 16:16 Dexamethasone 6 mg/ Syringe 1.5 mls @ 1 mls/min IV DAILY [facility] Stop: 10/26/24 09:02 Last Admin: 10/24/24 08:02 Dose: 1 mls/min Influenza Virus Vaccine Quadrival (Do Not Administer Flu Vaccine) 1 each N/A PRN PRN PRN Reason: Notification Stop: 11/22/24 16:16 Ketorolac Tromethamine (Ketorolac 0.5% Op Soln 5 Ml Btl) 1 drops OPR QID GEOFF Stop: 11/22/24 15:59 Last Admin: 10/24/24 13:18 Dose: 1 drops Lorazepam (Lorazepam 0.5 Mg Tab) 0.5 mg PO Q8H PRN PRN Reason: Sedation/Anxiety Stop: 11/22/24 16:16 Lorazepam (Lorazepam 2 Mg/1 Ml Vial) 0.5 mg IV Q8H PRN PRN Reason: Sedation/Anxiety Stop: 11/22/24 16:16 Magnesium Hydroxide (Magnesium Hydroxide Susp 30 Ml Udc) 30 ml PO Q24H PRN PRN Reason: Constipation Stop: 11/22/24 16:16 Metoclopramide HCl (Metoclopramide Hcl Inj 5 Mg/Ml 2 Ml Vial) 10 mg IV Q6H PRN PRN Reason: Nausea &/or Vomiting Stop: 11/22/24 16:16 Multivitamins (Multivitamin Tab) 1 tab PO QAM [facility] Stop: 11/23/24 08:59 Last Admin: 10/24/24 08:03 Dose: 1 tab Naloxone HCl (Naloxone Hcl 0.4 Mg/1 Ml Vial/Carp) 0.1 mg IV Q5M PRN PRN Reason: Oversedation/Resp depression Stop: 11/22/24 16:16 Ondansetron HCl (Ondansetron Inj 2 Mg/Ml 2 Ml Vial) 4 mg IV Q6H PRN PRN Reason: Nausea &/or Vomiting Stop: 11/22/24 16:16 Ondansetron HCl (Ondansetron 4 Mg Od Tab) 4 mg PO Q6H PRN PRN Reason: Nausea Stop: 11/22/24 16:16 Oxycodone HCl (Oxycodone Hcl Ir 5 Mg Tab (Immediate Release)) 5 - 10 mg PO Q4H PRN PRN Reason: MOD/SEV Pain & Pre PT Stop: 11/06/24 16:16 Last Admin: 10/24/24 05:47 Dose: 10 mg Pantoprazole Sodium (Pantoprazole 40 Mg Tab) 40 mg PO QAM [facility] Stop: 11/23/24 08:59 Last Admin: 10/24/24 08:03 Dose: 40 mg Pneumococcal Polyvalent Vaccine (Do Not Administer Pneumococcal Vaccine) 1 each N/A PRN PRN PRN Reason: Notification Stop: 11/22/24 16:16 Polyethylene Glycol (Polyethylene (Miralax) 17 Gm Pack) 17 gm PO Q6 GEOFF Stop: 11/23/24 05:59 Last Admin: 10/24/24 12:34 Dose: 17 gm Senna/Docusate Sodium (Docusate Sodium/Senna 50/8.6mg Tab) 2 tab PO HS [facility] Stop: 11/22/24 20:59 Last Admin: 10/23/24 20:43 Dose: 2 tab Sodium Biphosphate/Sodium Phosphate (Sod Phosphate/Sod Biphosphate Enema 132 Ml Btl) 132 ml MI ONE PRN PRN Reason: Constipation Stop: 11/22/24 16:16 Tamsulosin HCl (Tamsulosin Hcl 0.4 Mg Cap) 0.4 mg PO [facility] Stop: 11/22/24 20:59 Last Admin: 10/23/24 20:42 Dose: 0.4 mg Tramadol HCl (Tramadol Hcl 50 Mg Tablet) 50 - 100 mg PO Q4H PRN PRN Reason: MOD/SEV Pain & Pre PT Stop: 11/22/24 16:16 Last Admin: 10/24/24 14:20 Dose: 100 mg Valacyclovir HCl (Valacyclovir Hcl 500 Mg Tablet) 500 mg PO QAM [facility] Stop: 10/31/24 08:59 Last Admin: 10/24/24 08:03 Dose: 500 mg (2) CAD (coronary artery disease) Coronary Disease-Associated Artery/Lesion type: [place] artery [place] vs. transplanted heart: [place] heart Associated angina: without angina Qualified Code(s): I25.10 - Atherosclerotic heart disease of [place] coronary artery without angina pectoris (3) GERD (gastroesophageal reflux disease) Esophagitis presence: without esophagitis Qualified Code(s): K21.9 - Gastro- esophageal reflux disease without esophagitis (4) Hyperlipidemia Hyperlipidemia type: unspecified Qualified Code(s): E78.5 - Hyperlipidemia, unspecified (5) BPH (benign prostatic hyperplasia) Lower urinary tract symptom presence: unspecified whether lower urinary tract symptoms present Qualified Code(s): N40.0 - Benign prostatic hyperplasia without lower urinary tract symptoms
--- NOTE | 2024-10-25 10:26 | Discharge Summary ---
Date of Service October 25, 2024 Admission HPI Per Admitting Provider This is a 69-year-old male who presents with chronic persistent back and leg pain after failed course of nonoperative care is here for surgical invention. Principal Diagnosis Lumbar spondylosis with radiculopathy Discharge Data Allergies Allergy/AdvReac Type Severity Reaction Status Date / Time No Known Allergies Allergy Verified 10/23/24 08:02 Consultations 10/23/24 16:17 Consult Hospitalist Routine Procedures Performed Operation Date: 10/23/24 09:35 Actual Procedures p L4-S1 Decompression and Fusion(Not Applicable) - Abel Hunt DO Ordered Studies 10/23/24 09:35 [place] lumbar spine 2-3V Routine Hospital Course (1) Multilevel lumbosacral spondylosis with radiculopathy: Patient with multilevel lumbar compression fusion trial as well as to the orthopedic for postoperative. Postoperatively he was up and ambulating. GRAEME drain decreasing improved. Pain control. Excellent strength testing. Subcu discharge home. Discharge orders instructions found in chart for further review. Total Time Total Time Spent Total Time Spent (In Minutes): 20 minutes Discharge Plan Discharge Items Patient Disposition: Home - Self-Care Reason For Visit: Spondylolisthesis Lumbar Region, Multilevel Lumbos Discharge Diagnosis: Lumbar spondylosis with radiculopathy Activity: As commented below Non-emergency contact: Primary Care Provider Call non-emergency contact if: you have any medication questions Follow-up/Referrals: Mckinley Cordero MD [Primary Care Provider] - Diet: Regular Addtl Attending Provider Instructions: ACTIVITY RECOMMENDATIONS: SELF CARE INSTRUCTIONS AFTER THORACIC/LUMBAR FUSIONS 1. You may walk to your tolerance. It is good exercise for your legs and back. Expect some back and intermittent leg aches and pains. 2. You may perform "counter-top" level activities (make a sandwich, antonino with a project, etc.). 3. No bending or lifting of more than 10 pounds or back twisting of any nature (roll like a log when turning in bed). 4. You may ride in a car for 20-30 minutes at a time. No driving until after your first visit with your doctor. 5. Frequent changes of position and restricting sitting to 30 minutes at a time will help limit the amount of back spasms and stiffness you may experience. 6. You may discontinue the use of ambulatory aids (cane, crutches, etc.) once your strength and confidence allow. 7. You may grants administrator the shower and let water strike your incision when you arrive home at least once daily. Do not take a tub bath, sit in a hot tub or go into a swimming pool until after your first recheck in the office. 8. You may resume previous diet. SPECIAL CARE INSTRUCTIONS: VERY IMPORTANT TO READ AND REVIEW A. Your surgical incision has been closed with a cosmetic suture under the skin that will dissolve in about 6 weeks. In 14 days, you can use a pair of clean scissors and cut the suture that is left outside of the skin at the ends of your incision. 1. The small skin tapes can be removed 7 days after surgery if they have not fallen off by that point. 2. You may keep the wound open to air as much as possible to promote healing after post-op day number 5 unless told otherwise by your doctor. 3. If you think the wound looks like it is becoming infected (redness or worsening drainage) and/or you are experiencing fever, chill or worsening back pain and muscle spasms, contact the office so that we may evaluate you as soon as possible. B. Complications are uncommon, but please contact us if you have any signs or symptoms of: 1. wound infection (fever higher than 102.5 degrees F, redness, separation of wound, drainage, or increasing pain from the incision) 2. blood clots in legs (pain, swelling, redness and warmth in legs) 3. urinary tract infection (fever higher than 102.5 degrees F, burning upon urination or increased frequency of urination) 4. nerve problems (inability to walk on your toes or heels, numbness, loss of bowel or bladder control) 5. any other symptoms that concern you C. Please call the office at if you have any concerns or questions about your operation or recovery. D. No smoking! Smoking drastically decreases the chance of a solid fusion. E. Do not take any anti-inflammatory medications (Indocin, Advil, Motrin, Aspirin, Naprosyn, etc.) as these may inhibit the chance of a solid fusion. Tylenol is okay to take for pain. MANAGING PAIN AFTER SPINAL SURGERY 1. Narcotic medication is intended for short-term use and will be provided for surgical pain. Surgical pain usually lasts for a period of 4-6 weeks. Narcotic medication includes Percocet, Vicodin, Darvocet, Tylenol #3 or Lortab. 2. Longer-term pain is more appropriately treated with non-narcotic medication such as Tylenol ES. 3. Muscle spasm is not appropriately treated with narcotics. Muscle relaxers such as Soma, Flexeril or Skelaxin can be used along with Tylenol ES. 4. Remember that we all live with some "aches and pains". This is not unusual or uncommon after an injury or as we get older. a. Back pain is expected and may include muscle spasms for 4 to 6 weeks after surgery. The pain should gradually improve. If the pain worsens for no apparent reason, please contact the office. b. Intermittent leg pain may also be experienced and should not be concerned about unless it worsens for no apparent reason. If so, please contact the office. 5. We will provide appropriate medication within the normal guidelines of their prescribed use. We will also be very cautious and aware of potential abuse and extended duration of patients' medication needs. a. Pain medications are for your comfort and to assist with sleep and rest so that the tissue can heal. They are not provided in order to return to normal activity and should not be used through the day. To do so or worsening pain at night can result from ongoing tissue damage and development of tolerance to the prescribed medicine. 6. Please allow 2-3 days to process refills. Prescriptions will not be mailed but must be picked up at the office. FOLLOW UP VISIT: Keep your scheduled follow-up appointment. Any questions, please call the office at . Pending Studies at Discharge: No Stand-Alone Forms: [facility], Smoking Cessation Medications and DC Order Prescriptions: New tramadol 50 mg tablet 50 mg PO Q6H PRN (Reason: pain, moderate) Qty: 30 0RF oxycodone 5 mg tablet 5 mg PO Q6H PRN (Reason: pain) Qty: 30 0RF Rx Instructions: Oxycodone for severe pain tramadol for moderate pain Continued multivitamin Tablet 1 tab PO QAM atorvastatin 80 mg Tablet 80 mg PO HS valacyclovir [Valtrex] 500 mg Tablet 500 mg PO QAM carvedilol 3.125 mg Tablet 3.125 mg PO BID Rx Instructions: must administer with a meal/food tamsulosin 0.4 mg Capsule 0.4 mg PO HS omeprazole 20 mg Capsule,Delayed Release(Dr/Ec) 20 mg PO QAM aspirin 81 mg Capsule 81 mg PO QAM celecoxib [Celebrex] 100 mg Capsule 100 mg PO HS fluticasone propionate 50 mcg/actuation [place],Suspension 1 spray INTRANASAL HS Rx Instructions: administer into each nostril diclofenac epolamine 1.3 % Patch 24 Hour 1 patch TRANSDERMAL DAILY Discharge Orders: Discharge Order (Routine); Ordered 10/25/24 Ordered By: Abel Hunt Admission Data Admit Date/Time: 10/23/24 12:16 Attending Provider: Abel Hunt Admit Provider: Abel Hunt Primary Care Provider: Mckinley Cordero Other Providers: Ellis Lopez
--- NOTE | 2024-10-25 10:38 | Hospitalist Progress Note ---
Date of Service October 25, 2024 Assessment & Plan (1) Multilevel lumbosacral spondylosis with radiculopathy: (2) CAD (coronary artery disease): (3) GERD (gastroesophageal reflux disease): (4) Hyperlipidemia: (5) BPH (benign prostatic hyperplasia): Plan This is a 69 y/o male with CAD, hx NH, s/p LAD stent, GERD, BPH, proximal AAA, and other history as outlined below who underwent L4-S1 decompression fusion today and for whom we have been consulted to assist with post-operative medical management. Currently pt is feeling well. He was having right eye pain and irritation initially post-op but was evaluated by anesthesia, diagnosed with a corneal abrasion, and put on treatment with erythromycin/ketorolac. #Multilevel lumbosacral spondylosis with radiculopathy - s/p L4-S1 decompression fusion 10/23. - Pain control, activity, and DVT prophylaxis per the primary team - EBL 400 ml - will repeat H&H in the AM to monitor for post-op blood loss anemia Denies any significant pain following the procedure Has been moving around without much difficulties Remains medically stable with unremarkable labs - Reports improvement in his RLE radicular signs or symptoms. #Right corneal abrasion - Continue erythromycin and ketorolac as ordered by anesthesia #CAD, prior NH, s/p LAD stent - Asymptomatic at present, no issues with activity prior to surgery - Continue aspirin, statin, beta-arden Does not have any respiratory and/or cardiac symptoms #GERD - Chronic, stable - continue PPI #BPH - Chronic, stable - continue tamsulosin DVT prophylaxis As per orthospine CODE STATUS Full Dispo: per primary team. Admission and Anticipated Discharge Date Admission Date: October 23, 2024 Subjective The patient was seen and examined in medical floor He is status post L4-S1 decompression and fusion, reports improvement in rle radicular pain pt moving gas and has no belly pain, denies bowel movement yet. denies other Ros. Sitting on a chair without any acute distress Physical Exam Physical Exam: Sitting on a chair without any acute distress Constitutional: well developed, well nourished and average body habitus Eyes: PERRL, conjunctivae normal, anicteric sclerae ENMT: external ear and nose normal, oropharynx normal Neck: trachea midline, no thyromegaly Respiratory: no respiratory distress Auscultation: lungs clear to auscultation bilaterally Cardiovascular: Rate/Rhythm: regular rate and regular rhythm; not tachycardic Heart Sounds: normal S1 and normal S2; no murmur Extremities: no edema Gastrointestinal (Abdomen): Inspection/Auscultation: normal bowel sounds; abdomen not distended Percussion/Palpation: abdomen soft; abdomen nontender Musculoskeletal: Low back with clean dressing without soakage. GRAEME drain with scant serosanguineous collection noted. Neurologic: normal touch/pain/proprioception and moves all extremities; no focal motor deficits Psychiatric: A+Ox3, euthymic affect Lymphatic: no cervical or axillary lymphadenopathy Results & Data Results & Data Vital Signs (Past 12 Hours) Vital Signs Temp Pulse Resp BP Pulse Ox O2 Del Method 10/25/24 07:10 36.6 C 71 16 119/74 96 Room Air (2) CAD (coronary artery disease) Coronary Disease-Associated Artery/Lesion type: [place] artery [place] vs. transplanted heart: [place] heart Associated angina: without angina Qualified Code(s): I25.10 - Atherosclerotic heart disease of [place] coronary artery without angina pectoris (3) GERD (gastroesophageal reflux disease) Esophagitis presence: without esophagitis Qualified Code(s): K21.9 - Gastro- esophageal reflux disease without esophagitis (4) Hyperlipidemia Hyperlipidemia type: unspecified Qualified Code(s): E78.5 - Hyperlipidemia, unspecified (5) BPH (benign prostatic hyperplasia) Lower urinary tract symptom presence: unspecified whether lower urinary tract symptoms present Qualified Code(s): N40.0 - Benign prostatic hyperplasia without lower urinary tract symptoms
[2024-10-25 11:43] VITALS: BP 110/67; PULSE 71; TEMP 97.9; O2SAT 96
== END 2024-10-25 13:26 | disposition home or self-care (01) | DRG 428 ==
LOC: ASU 07:59 → 3N 12:16